=== PATIENT | female | born 1970 | race Caucasian/White ===

== ENCOUNTER → 2018-12-30 | Outpatient (CLI) | payer OTHER ==
--- NOTE | 2018-12-31 08:33 | RADIOLOGY IMAGING REPORT ---
FACILITY: [facility] - [place] PATIENT NAME: KONSTANTIN BUSTILLOS : [id number] MR: [id number] V: [id number] EXAM DATE: ORDERING PHYSICIAN: RASHMI VALDERRAMA TECHNOLOGIST: Azeb Suarez PROCEDURE:BILATERAL DIGITAL SCREENING MAMMOGRAM WITH CAD ASSISTED INTERPRETATION & 3D TOMOSYNTHESIS COMPARISON:Prior mammograms dated 09/14/15 INDICATIONS:SCREENING FINDINGS: The breasts are heterogeneously dense which can obscure small masses. The parenchymal pattern has remained stable allowing for difference in mammographic technique & patient positioning. DIAGNOSTIC CATEGORY 1--NEGATIVE. RECOMMENDATIONS: ROUTINE MAMMOGRAM AND CLINICAL EVALUATION. IMPRESSION: BIRADS 1: Negative. No significant abnormality is seen. Dictated by: Arcelia Hill M.D. on 12/30/2018 at 16:35 Transcribed by: ROBYN on 12/31/2018 at 7:12 Approved by: Arcelia Hill M.D. on 12/31/2018 at 8:32 [facility]
== END ==
LOC: MAMO 00:29
PROVIDERS: ATTEND Family Medicine
DX: Z12.31 Encounter for screening mammogram for malignant neoplasm of breast (principal)
CPT/HCPCS: 77063; 77067

== ENCOUNTER → 2019-01-30 | Outpatient (CLI) | payer OTHER ==
--- NOTE | 2019-01-30 12:30 | RADIOLOGY IMAGING REPORT ---
FACILITY: [facility] - [place] PATIENT NAME: Jocelyn Goss : 1970 MR: [id number] V: [id number] EXAM DATE: ORDERING PHYSICIAN: RASHMI VALDERRAMA TECHNOLOGIST: Location: [facility] - [place], [place] Patient: Jocelyn Goss : 1970 Visit/Account:[id number] Date of Sevice: 01/30/2019 Transvaginal/transabdominal pelvic ultrasound. HISTORY: Left pelvic pain, LMP not listed. COMPARISON: None. The uterus measures 7.3 cm in sagittal length. The myometrium is mildly heterogeneous. Several cyst s are present in the region of the internal cervical os. The endometrial stripe is minimally heterog eneous measuring 9 mm in thickness. The vaginal vault is slightly heterogeneous. No free fluid. Th e adnexal vessels are unremarkable. The right ovary measures 3.4 cm in length. Two simple cysts sukumar suring up to 2.4 cm in diameter are present in the right ovary. The left ovary measures 2.3 cm in le ngth. An 8 mm complex follicular cyst is present in the left ovary. Ovarian blood flow is normal bi laterally. Portions of the pelvis are obscured by bowel gas. IMPRESSION: Mild uterine adenomyosis. Cervical nabothian cysts. Two right ovarian cysts consistent with follicular cysts. Other etiologies are less likely. A follo w-up ultrasound might be considered to document resolution. Negative left ovary. Report Dictated By: Figueroa Mckinnon MD at 01/30/2019 12:17 PM Report E-Signed By: Figueroa Mckinnon MD at 01/30/2019 12:26 PM WSN:[email or web address]
== END ==
LOC: US 07:09
PROVIDERS: ATTEND Family Medicine
DX: N80.0 Endometriosis of uterus (principal); N88.8 Other specified noninflammatory disorders of cervix uteri; N83.291 Other ovarian cyst, right side
CPT/HCPCS: 76856

== ENCOUNTER → 2019-04-03 | Outpatient (CLI) | payer OTHER | LOC: RESP 02:46 | PROVIDERS: ATTEND Family Medicine | DX: G47.30 Sleep apnea, unspecified (principal) ==